=== PATIENT | male | born 1945 | race Caucasian/White ===

== ENCOUNTER → 2017-09-19 | Outpatient (CLI) | payer OTHER | END | disposition home or self-care (01) | LOC: CT 16:36 | DX: I65.23 Occlusion and stenosis of bilateral carotid arteries (principal) ==

== ENCOUNTER 2018-09-15 12:13 | Emergency (ER) | payer MEDICARE ==
[~2018-09-15] VITALS: Ht 172.7 cm; Wt 81.6 kg
--- NOTE | ~2018-09-15 | EKG ---
[place], [place] ELECTROCARDIOGRAM REPORT NAME: TELLY LAYNE UNIT #: [id number] ROOM: DOCTOR: EPIPHANY DRAFT REPORT BIRTHDATE: [birth year] [facility] Test Date: 2018-09-15 Test Time: 12:37:44 Pat Name: TELLY LAYNE Department: Room: Gender: Employee Representative: : 1945 Requested By: CAMI STANTON Order Number: [id number] Reading MD: Jermaine Nino MD Measurements Intervals [place] Rate: 82 P: 46 ND: 174 QRS: 56 QRSD: 93 T: 92 QT: 384 QTc: 449 Interpretive Statements Sinus rhythm Nonspecific repol abnormality, lateral leads Electronically Signed On 09-16-2018 11:10:45 PST by Jermaine Nino MD CM:EKGRPT:ELECTROCARDIOGRAM REPORT [id number] CAMI VANG DRAFT REPORT CAMI TSANTON M.D.
[2018-09-15 12:54] LABS: BASO % 0.3 % (0.0-1.0); EOS # 0.2 10*3/uL (0.0-0.4); EOS % 2.2 % (1.0-4.0); HEMATOCRIT 22.7 % (42.0-52.0); HEMOGLOBIN 7.4 g/dl (14.0-18.0); LYMPH # 1.1 10*3/uL (1.3-4.4); LYMPH % 11.3 % (27.0-41.0); MEAN CELL VOLUME 94.6 fl (80.0-94.0); MEAN CORPUSCULAR HGB 30.8 pg (27.0-31.0); MEAN CORPUSCULAR HGB CONC 32.6 g/dl (33.0-37.0); MEAN PLATELET VOLUME 9.6 fl (9.6-12.3); MONO # 0.6 10*3/uL (0.1-1.0); MONO % 6.7 % (3.0-9.0); NEUT # 7.3 10*3/uL (2.3-7.9); PLATELET COUNT AUTOMATED 281 10*3/uL (130-400); RED CELL DISTRI WIDTH 13.3 % (0-14.5); WHITE BLOOD COUNT 9.3 10*3/uL (4.8-10.8)
[2018-09-15 13:05] LABS: ACT PARTIAL THROMBO TIME 21.5 SECONDS (20.8-31.5)
[2018-09-15 13:10] LABS: ALBUMIN 3.3 gm/dl (3.1-4.5); ALKALINE PHOSPHATASE 89 U/L (45-117); BUN 22 mg/dl (7-24); CHLORIDE 107 mmol/L (98-107); CREATININE 1.23 mg/dL (0.70-1.30); POTASSIUM 3.6 mmol/L (3.5-5.1); SGOT/AST 20 IU/L (3-35); SGPT/ALT 17 U/L (12-78); SODIUM 141 mmol/L (136-145); TOTAL PROTEIN 7.2 gm/dL (6.4-8.2)
[2018-09-15] MEDS ORDERED: CIMETIDINE200 MG PO (13:57)
== END 2018-09-15 16:00 | disposition short-term general hospital (02) ==
LOC: ED 12:13
PROVIDERS: Emergency Medicine
DX: I63.9 Cerebral infarction, unspecified (principal); Z88.0 Allergy status to penicillin; Z79.899 Other long term (current) drug therapy

== ENCOUNTER → 2020-04-05 | Outpatient (CLI) | payer MEDICARE ==
[~2020-04-05] MED LIST: CIMETIDINE200 MG PO
== END | disposition home or self-care (01) ==
LOC: US 16:49
DX: I65.23 Occlusion and stenosis of bilateral carotid arteries (principal); I10 Essential (primary) hypertension; E78.2 Mixed hyperlipidemia

== ENCOUNTER 2020-08-16 11:08 | Inpatient (IN) | payer MEDICARE ==
[~2020-08-16] VITALS: Ht 177.8 cm; Wt 55.5 kg
[2020-08-16] VITALS (28 sets, daily range): BP systolic 93–115; BP diastolic 2–59
[2020-08-16 11:24] LABS: MEAN CELL VOLUME 86.8 fl (80.0-94.0); MEAN CORPUSCULAR HGB 24.5 pg (27.0-31.0); MEAN CORPUSCULAR HGB CONC 28.3 g/dl (33.0-37.0); NUCLEATED RED BLOOD CELL 0.1 10*3/uL (0.0-0.0); NUCLEATED RED BLOOD CELL 0.4 % (0.0-0.0); PLATELET COUNT AUTOMATED 327 10*3/uL (130-400); RED CELL DISTRI WIDTH 16.5 % (0-14.5)
--- NOTE | 2020-08-16 11:30 | NUR ---
DR. STANTON AWARE OF CRITICAL HGB AND HCT
[2020-08-16 11:32] LABS: HEMATOCRIT 19.1 % (42.0-52.0)
[2020-08-16 11:34] LABS: ACT PARTIAL THROMBO TIME 22.9 SECONDS (20.0-32.1); INTERNATIONAL NORM RATIO 1.1 (2.0-3.5)
[2020-08-16 11:43] LABS: PLATELET SUFFICIENCY NORMAL (NORMAL); TOTAL CELLS COUNTED 100 #CELLS
[2020-08-16 11:44] LABS: ALBUMIN 2.8 gm/dl (3.1-4.5); CREATININE 2.66 mg/dL (0.70-1.30); POLYCHROMASIA SLIGHT; POTASSIUM 3.6 mmol/L (3.5-5.1); TOTAL PROTEIN 7.6 gm/dL (6.4-8.2)
[2020-08-16 11:51] LABS: TROPONIN I 22.2 ng/ml (<0.045)
--- NOTE | 2020-08-16 11:52 | NUR ---
DR. STANTON AWARE OF CRITICAL TROPONIN.
--- NOTE | 2020-08-16 12:00 | NUR ---
AT BEDSIDE WITH DR. STANTON FOR HEMMOCULT EXAM. RECTAL EXAM POSITIVE FOR SCANT AMOUNT OF BLOOD.
--- NOTE | 2020-08-16 12:05 | NUR ---
WHILE ASSISTING DR. STANTON WITH RECTAL EXAM WOUND ASSESSMENT WAS COMPLETED. PATIENT HAD A APPROX 4 CM ABRASION AREA TO RIGHT BUTTOCKS. IT IS NOT OPEN, SURROUNDING SKIN WAS INTACT AND IT IS BLANCHABLE. THERE WAS A SMALL ABRASION AT THE BASE OF HIS NECK ON THE SPINOUS PROCESS THAT WAS NOT OPEN BUT MADE AWARE OF. NO SKIN BREAKDOWN ON HEELS. DR. STANTON STATES NO PHOTOS NEEDED OF THE ABRASIONS BUT I WILL MAKE NOTE OF THEM. RIGHT KNEE HAS A SMALL ABRASION ON IT ALSO.
--- NOTE | 2020-08-16 12:59 | NUR ---
GAVE SISTER UPDATE REGARDING PATIENT WITH HIS PERMISSION.
--- NOTE | 2020-08-16 13:12 | NUR ---
IV FLUIDS INFUSING PER EMAR WITHOUT DIFFICULTY. PATIENT HAS BEEN DRINKING ICED WATER BY MOUTH.
--- NOTE | 2020-08-16 13:31 | NUR ---
CONSULTED DR. ALVAREZ- VERBAL ORDER FOR 40 MG IV PROTONIX DAILY.
--- NOTE | 2020-08-16 13:33 | NUR ---
DR. STANTON AWARE OF DR. ALVAREZ'S ORDER FOR PROTONIX [address] STANTON VERBAL ORDER TO GIVE 40 MG IVP NOW.
--- NOTE | 2020-08-16 14:15 | NUR ---
1ST UNIT OF PRBC'S INITIATED AT 1405. SEE TAR
--- NOTE | 2020-08-16 14:17 | NUR ---
PATIENT NOW SAYS THAT HE DOES TAKE COUMADIN. WILL INFORM ICU NURSE.
--- NOTE | 2020-08-16 14:27 | NUR ---
VITAL SIGNS STABLE 15 MINS POST TRANSFUSION INITIATION. RATE INCREASED FROM 60 ML/HR TO 120 ML/HR. SITE APPEARS ASYMPTOMATIC. PATIENT DENIES ANY S/S OF TRANSFUSION REACTION.
--- NOTE | 2020-08-16 14:38 | NUR ---
PATIENT IS STABLE AND READY FOR TRANSPORT TO ICU BED.
--- NOTE | 2020-08-16 14:45 | NUR ---
A 74, admitted to ICCU, under the services of FLOYD Damon DO with a diagnosis of GI BLEED. Chief complaint is RECTAL BLEEDING / GENERALIZED WEAKNESS. Patient arrived via stretcher from ER. Monitor applied. Initial assessment completed. Vital signs taken and recorded. FLOYD DAMON DO notified of admission to the unit. Orders received. See assessment for past medical history, medications and allergies. Patient and/or family oriented to unit. [facility] ICCU visitation policy reviewed. Clothing/patient valuable form completed. [place]
--- NOTE | 2020-08-16 16:12 | NUR ---
SPOKE WITH PT'S SISTER,BRIA, ON THE PHONE. UPDATED HER ON PT'S CONDITION AND PLAN OF CARE. SHE STATED SHE WILL GO TO PT'S HOUSE AND CALL WITH A LIST OF HIS CURRENT MEDS. PT UPDATED THAT BRIA CALLED.
--- NOTE | 2020-08-16 16:18 | NUR ---
PT TOLERATING BLOOD TRANSFUSION WELL. PT DENIES COMPLAINTS AT THIS TIME. WILL CONTINUE TO MONITOR PT.
--- NOTE | 2020-08-16 16:25 | NUR ---
FIRST UNIT OF BLOOD COMPLETED. PT TOLERATED TRANSFUSION WELL.
--- NOTE | 2020-08-16 16:50 | NUR ---
#2 UNIT OF BLOOD STARTED. VSS. WILL CONTINUE TO MONITOR PT.
[2020-08-16 16:55] LABS: MEAN CELL VOLUME 86.5 fl (80.0-94.0); MEAN CORPUSCULAR HGB 25.3 pg (27.0-31.0); MEAN CORPUSCULAR HGB CONC 29.3 g/dl (33.0-37.0); MEAN PLATELET VOLUME 11.2 fl (9.6-12.3); NUCLEATED RED BLOOD CELL 0.1 10*3/uL (0.0-0.0); NUCLEATED RED BLOOD CELL 0.4 % (0.0-0.0); PLATELET COUNT AUTOMATED 276 10*3/uL (130-400); RED BLOOD COUNT 2.37 10*6/uL (4.50-5.90); RED CELL DISTRI WIDTH 15.9 % (0-14.5); WHITE BLOOD COUNT 13.1 10*3/uL (4.8-10.8)
--- NOTE | 2020-08-16 17:00 | NUR ---
DR VILLARREAL IN TO SEE PT. NO NEW ORDERS RECEIVED AT THIS TIME.
[2020-08-16 17:20] LABS: BASOPHILS 1 % (0-1); TOTAL CELLS COUNTED 100 #CELLS
[2020-08-16 17:21] LABS: BURR CELLS FEW; PLATELET SUFFICIENCY NORMAL (NORMAL)
--- NOTE | 2020-08-16 17:30 | NUR ---
PT DENIES COMPLAINTS. PT TOLERATING BLOOD TRANSFUSION WELL. DR GOODWIN STATED PT COULD HAVE ICE CHIPS. ICE CHIPS GIVEN TO PT.
[2020-08-16 17:38] LABS: HEMATOCRIT 20.5 % (42.0-52.0)
[2020-08-16] MEDS ORDERED: HEARTBURN RELIE10 MG PO (17:44)
[2020-08-16] MEDS ORDERED: PLAVIX75 M1 PO (17:45)
[2020-08-16] MEDS ORDERED: VITAMIN D350 MC2 PO (17:45)
[2020-08-16] MEDS ORDERED: VITAMIN B-121000 MC2 PO (17:46)
[2020-08-16] MEDS ORDERED: LEVOXYL75 MCG PO (17:47)
[2020-08-16] MEDS ORDERED: LIPITOR80 MG PO (17:53)
[2020-08-16] MEDS ORDERED: ASPIRIN ADULT L81 M1 PO (17:53)
--- NOTE | 2020-08-16 18:30 | NUR ---
SECOND UNIT OF BLOOD TRANSFUSED. PT TOLERATED TRANSFUSION WELL. CBC ORDERED BY DR GOODWIN.
[2020-08-16 20:13] LABS: BASO % 0.1 % (0.0-1.0); EOS % 0.3 % (1.0-4.0); HEMATOCRIT 24.8 % (42.0-52.0); LYMPH % 7.5 % (27.0-41.0); MEAN CELL VOLUME 85.8 fl (80.0-94.0); MEAN CORPUSCULAR HGB CONC 30.2 g/dl (33.0-37.0); MEAN PLATELET VOLUME 11.2 fl (9.6-12.3); MONO # 1.2 10*3/uL (0.1-1.0); MONO % 8.7 % (3.0-9.0); NEUT # 11.6 10*3/uL (2.3-7.9); NEUT % 82.8 % (47.0-73.0); NUCLEATED RED BLOOD CELL 0.1 10*3/uL (0.0-0.0); NUCLEATED RED BLOOD CELL 0.6 % (0.0-0.0); PLATELET COUNT AUTOMATED 276 10*3/uL (130-400); RED BLOOD COUNT 2.89 10*6/uL (4.50-5.90); RED CELL DISTRI WIDTH 15.1 % (0-14.5)
--- NOTE | 2020-08-16 20:37 | NUR ---
1930 STOOD AT BEDSIDE TO ATTEMPT TO VOID. VERY WEAK AND UNSTEADY. BACK TO BED WITH BED ALARM INTACT. HEP LOCK;S INTACT X'S 2 APOLINAR AND RH. PULSE OX 95% ON RA. VANEGAS. ALERT AND COOPERATIVE. NO C/O'S PAIN OR DISCOMFORT VOICED. NO DISTRESS NOTED. HOB ELEVATED. SIDE RAILS UP X'S 2. CALL LIGHT IN REACH.
--- NOTE | 2020-08-16 21:10 | NUR ---
PRE TRNASFUSION VITALS, 98.4 94 11 107/57
--- NOTE | 2020-08-16 21:58 | NUR ---
3RD UNIT OF PRBC'S STARTED AFTER PROPER IDENTIFICATION PER 2 RN''S. SEE TAR FOR ALL APPROPRIATE VS. PT RESTING IN BED WITH EYES CLOSED.
--- NOTE | 2020-08-16 23:10 | NUR ---
OUT OF BED FREQUENTLY TO URINATE SMALL AMOUNTS. WHEN ASKED PT WHERE [place], [place] WHAT DAY IS IT "SATURDAY". MONTH "AUGUST", WHO IS THE PRESIDENT " THAT HEAD". RE-ORIENTED.
[2020-08-17] VITALS (8 sets, daily range): BP systolic 99–116; BP diastolic 46–68
--- NOTE | 2020-08-17 01:40 | NUR ---
0125 3RD UNIT OF PRBC'S TRANSFUSED. TOLERATED WELL. SEE TAR FOR ALL APPROPRIATE VS.
--- NOTE | 2020-08-17 02:02 | NUR ---
RESTING IN BED WITH EYES CLOSED. APPEARS TO BE SLEEPING.
--- NOTE | 2020-08-17 04:10 | NUR ---
REMAINS SLEEPING WITHOUT DISTRESS,
[2020-08-17 06:10] LABS: ALBUMIN 2.5 gm/dl (3.1-4.5); CREATININE 1.93 mg/dL (0.70-1.30); POTASSIUM 3.4 mmol/L (3.5-5.1); TOTAL PROTEIN 6.7 gm/dL (6.4-8.2)
--- NOTE | 2020-08-17 06:10 | NUR ---
HAS BEEN OOB FREQUENTLY TO VOID SMALL AMOUNTS. GRUNTS LOUDLY WHEN URINATING. IV FLUIDS CONT. VSS. NO DISTRESS NOTED. CONDITION GUARDED.
--- NOTE | 2020-08-17 06:11 | NUR ---
PT REFUSED TEDS. WILL REASSESS. SCD'S NOT APPLIED DUE TO PT GETTING OOB FREQUENTLY AND SUDDENLY. RISK FOR FALL. BED ALARM INTACT.
[2020-08-17 06:12] LABS: FREE T4 0.78 ng/dl (0.76-1.46)
[2020-08-17 06:14] LABS: BASO % 0.1 % (0.0-1.0); EOS # 0.1 10*3/uL (0.0-0.4); EOS % 0.7 % (1.0-4.0); HEMATOCRIT 28.3 % (42.0-52.0); LYMPH # 1.1 10*3/uL (1.3-4.4); LYMPH % 9.1 % (27.0-41.0); MEAN CORPUSCULAR HGB 26.1 pg (27.0-31.0); MEAN CORPUSCULAR HGB CONC 31.1 g/dl (33.0-37.0); MEAN PLATELET VOLUME 11.9 fl (9.6-12.3); MONO # 1.1 10*3/uL (0.1-1.0); MONO % 9.1 % (3.0-9.0); NEUT # 9.9 10*3/uL (2.3-7.9); NEUT % 80.2 % (47.0-73.0); NUCLEATED RED BLOOD CELL 0.1 10*3/uL (0.0-0.0); NUCLEATED RED BLOOD CELL 0.5 % (0.0-0.0); PLATELET COUNT AUTOMATED 246 10*3/uL (130-400); RED BLOOD COUNT 3.37 10*6/uL (4.50-5.90); RED CELL DISTRI WIDTH 15.4 % (0-14.5); WHITE BLOOD COUNT 12.3 10*3/uL (4.8-10.8)
[2020-08-17 06:16] LABS: THYROID STIM HORMONE (HS) 7.83 uIU/ml (0.358-4.75)
--- NOTE | 2020-08-17 07:35 | NUR ---
SPOKE WITH DR ALVAREZ ABOUT PATIENT LABS/ECHO THIS AM & NPO STATUS. REQUESTED WE CHECK TO SEE IF HE IS CLEARED FOR SCOPE BY CARDIOLOGY. CALL HIM BACK WITH IF THE PATIENT IS CLEARED OR NOT. IF CLEARED WILL SCOPE. PER PT HE IS AGEEABLE AT SIT [facility] BUT CONTINUES TO ASK FOR ICE.. FREQ EXPLANATIONS MET WITH RESISTANCE. DR GOODWIN MADE AWARE
--- NOTE | 2020-08-17 08:00 | NUR ---
AM ASSESSMENT DONE AT BEDSIDE. PATIENT ALERT & ORIENTED BUT REFUSES TO FOLLOW DIRECTIONS ABOUT NPO & CALL CHRISTIAN USE. ABRAISIONS TO NECK, RT ELBOW, KNEES & BUTTOCK FROM ADMISSION AFTER CRAWLING/?FALLS AT HOME..IV SITES X2 ASYMPTOMATIC
--- NOTE | 2020-08-17 08:24 | NUR ---
PHYSICAL THERAPY Nursing screen received and chart reviewed. PT order received. Will follow to complete skilled PT evaluation. Thank you. Aura Thorpe,PT,DPT
--- NOTE | 2020-08-17 08:47 | NUR ---
PHYSICAL THERAPY Physical Therapy evaluation completed on ICCU with full evaluation to follow. Low complexity skilled PT evaluation per chart review and evaluation, [address]. Recommend physical therapy per plan of care and Home health services upon discharge. Thank you for this referral. Aura Thorpe,PT,DPT
[2020-08-17 08:56] LABS: BILIRUBIN Negative (Negative); BLOOD Negative (Negative); CLARITY Clear (Clear); COLOR Yellow (Yellow); GLUCOSE Negative (Negative); KETONE 1+ (Negative); LEUKO ESTERASE Negative (Negative); NITRITE Negative (Negative)
[2020-08-17 09:12] LABS: RBC 0-2 rbc/hpf (0-2); URIC ACID CRYSTALS TRACE
--- NOTE | 2020-08-17 09:37 | NUR ---
PT SITTING UP IN CHAIR - AWAITING BREAKFAST THEN WANTS TO GO BACK TO BED. DR GOODWIN HAS ROUNDED AND SEEN THE PATIENT
--- NOTE | 2020-08-17 09:45 | NUR ---
Manager Transmission in to talk to patient. Patient states lives at home alone with his sister checking in on him. There are 13 steps in the home. Physician: Dr. Diana Johnson Pharmacy: [facility] health services: would like [facility] on discharge Patient's level of ADLs: minimal assistance Patient has working utilities: yes DME: walker Follow-up physician's appointment after d/c: will be made by the hospitalist nurse director upon discharge Does patient want to access PORTAL?: no Discharge plan discussed with patient. He is sitting up in his bedside chair eating breakfast. He states he lives at home alone with his sister checking in on him. He is independent in his ADLs and ambulates with a walker. Discussed short term rehab and he refuses. Discussed home health care services and he is agreeable. When provided with a list of agencies he chose [facility]. When medically stable he will be discharged to home with [facility] services. He states his sister will provide transportation on discharge. SUSAN RODRIGUEZ
--- NOTE | 2020-08-17 10:42 | NUR ---
SPOKE WITH DAUGHTER AND THEN SHE SPOKE WITH THE PATIENT. CONTACT NUMBERS UPDATED
--- NOTE | 2020-08-17 10:53 | NUR ---
DR SHETH HERE TO SEE PATIENT
--- NOTE | 2020-08-17 11:40 | NUR ---
ECHO BEING DONE AT BEDSIDE- PT POSITIONED ONTO LEFT SIDE. IVF INFUSING
--- NOTE | 2020-08-17 11:56 | NUR ---
Patient not available for occupational therapy evalaution as he was getting an ECHO. OTR will attempt at a later time. Tash Leija OTr/Alana
--- NOTE | 2020-08-17 13:02 | NUR ---
PATIENT HAD HARD SMALL BALL OF STOOL. SENT FOR FOBI TESTING. COLOR BLACK/BROWN
--- NOTE | 2020-08-17 13:08 | NUR ---
MOM GIVEN FOR HARD STOOL PATIENT WAS STRAINING AND CONCERN FOR INCREASED STRESS ON THE HEART.
--- NOTE | 2020-08-17 13:16 | NUR ---
BACK TO BED WITH 1 ASSIST - SOB WITH EXERTION
--- NOTE | 2020-08-17 14:32 | NUR ---
Occupational Therapy offered this date. Patient was very tired and requested OT return tommorrow. Tash Leija OTR/Alana
--- NOTE | 2020-08-17 15:15 | NUR ---
DR VILLARREAL HERE AND ROUNDED.. NEED EGD DONE (PT IS HIGH RISK) BEFORE CAN PROCEED WITH CARDIAC TREATMENT & ANTICOAGULATION. CALL/MESSAGE LEFT FOR DR ALVAREZ
--- NOTE | 2020-08-17 15:25 | NUR ---
Nursing screen received and Occupational Therapy referral received. Thank you. Tash Leija OTR/L
--- NOTE | 2020-08-17 17:27 | NUR ---
DR ALVAREZ HERE - SPOKE WITH THE PATIENT - FOUND ULCERATIVE TYPE AREA TO LOWER TONGUE. NYSTATIN ORDERED. PATIENT REFUSED PICTURES OR MEASURING. PATIENT TO BE NPO AFTER MIDNIGHT FOR POSSIBLE EGD TOMORROW. AM LABS TO BE CALLED TO DR ALVAREZ AND CASE DISCUSSED. PATIENT INCONT OF URINE
[2020-08-18] VITALS: BP 103/61
[2020-08-18 01:29] LABS: ABG BASE EXCESS -2.9 mmol/L (-2.0-2.0); ARTERIAL BLOOD GAS PH 7.405 (7.35-7.45)
--- NOTE | 2020-08-18 01:40 | NUR ---
CALLED REGARDING PATIENT POX DECREASING ABGS OBTAINED. PATIENT VERY LABORED BREATHING. MOIST RESPIRATIONS. STATED HE WILL BE UP.
--- NOTE | 2020-08-18 02:00 | NUR ---
AT BEDSIDE. STAT PORTABLE CXR OBTAINED. IVF D/C AT THIS TIME. LASIX 40MG IV X1 GIVEN AT THIS TIME. #16 FR. NICOLE CATHETER INSERTED WITH 10CC URINE OBATINED. PATIENT BRIEF WAS WET. RESPIRATORY AT BEDSIDE AND PLACED ON BIPAP AT THIS TIME.
[2020-08-18 04:00] VITALS: BP 110/54
[2020-08-18 05:02] LABS: BASO % 0.1 % (0.0-1.0); EOS # 0.1 10*3/uL (0.0-0.4); EOS % 0.7 % (1.0-4.0); HEMATOCRIT 28.7 % (42.0-52.0); LYMPH # 1.1 10*3/uL (1.3-4.4); LYMPH % 8.2 % (27.0-41.0); MEAN CELL VOLUME 85.2 fl (80.0-94.0); MEAN CORPUSCULAR HGB 26.4 pg (27.0-31.0); MEAN PLATELET VOLUME 11.6 fl (9.6-12.3); MONO # 1.1 10*3/uL (0.1-1.0); MONO % 8.1 % (3.0-9.0); NEUT # 10.9 10*3/uL (2.3-7.9); NEUT % 82.2 % (47.0-73.0); NUCLEATED RED BLOOD CELL 0.1 10*3/uL (0.0-0.0); NUCLEATED RED BLOOD CELL 0.4 % (0.0-0.0); PLATELET COUNT AUTOMATED 228 10*3/uL (130-400); RED BLOOD COUNT 3.37 10*6/uL (4.50-5.90); WHITE BLOOD COUNT 13.3 10*3/uL (4.8-10.8)
[2020-08-18 05:21] LABS: ALBUMIN 2.5 gm/dl (3.1-4.5); CREATININE 1.64 mg/dL (0.70-1.30); TOTAL PROTEIN 6.9 gm/dL (6.4-8.2)
[2020-08-18 07:51] LABS: URINE CREATININE RANDOM 21.3 mg/dL
[2020-08-18 07:56] LABS: ABG BASE EXCESS -0.3 mmol/L (-2.0-2.0); ARTERIAL BLOOD GAS PH 7.473 (7.35-7.45)
[2020-08-18 08:00] VITALS: BP 101/64
--- NOTE | 2020-08-18 08:52 | NUR ---
CONSULT CALLED TO DR LAIENZ, MESSAGE LEFT
--- NOTE | 2020-08-18 08:59 | NUR ---
SPOKE WITH SISTER VIA PHONE ABOUT CONDITION
--- NOTE | 2020-08-18 09:04 | NUR ---
Occupational Therapy evaluation offered, nursing reports that patient is no appropriate today for OT as he had respiratory distress last night and is now on bipap. OTR will recheck tomorrow. Tash Leija OTR/dixie
--- NOTE | 2020-08-18 09:57 | NUR ---
DR LAINEZ HERE - ASSESSED AND WANTS PATIENT TRANSFERED TO [facility]. PATIENT IN AGREEMENT. RAPID & SARS COLLECTED.. DR GOODWIN SPOKE WITH DAUGHTER VIA PHONE AND WANTS [facility].
[2020-08-18 12:00] VITALS: BP 102/47
--- NOTE | 2020-08-18 12:03 | NUR ---
PHYSICAL THERAPY Patient was in ICCU-3 in with SEJAL Nieto in the room with patient. Patient is possibly being transferred to [facility] in [place] per Dr. Erickson. Patient is pending for results of COVID - 19 TEST. SEJAL PRESCOTT said yeleeanne cannot be seen today motioning through window of room. SILVA Tee present with as witness. SINDHU [employer] OFF[employer]ER
--- NOTE | 2020-08-18 13:04 | NUR ---
SPOKE WITH ONE CALL - CLINICAL UPDATES GIVEN
--- NOTE | 2020-08-18 14:36 | NUR ---
REPORT TO [facility].. PATIENT FAMILY NOTIFIED OF TRANSFER AND GIVEN PHONE NUMBER
--- NOTE | 2020-08-18 14:49 | NUR ---
PATIENT LEFT WITH KREMLIN.. CALL TO IVIS AT [facility] THAT PATIENT LEFT
--- NOTE | 2020-08-19 07:53 | NUR ---
PHYSICAL THERAPY CO-SIGN I approve of the Physical Therapy notes written above. Bertha Ibanez PT
== END 2020-08-18 14:49 | disposition short-term general hospital (02) | DRG 280 ==
LOC: ED 11:08 → EDHOLD 13:22 → ICCU 13:22
PROVIDERS: Emergency Medicine; Internal Medicine; Internal Medicine Critical Care Medicine; Internal Medicine Gastroenterology; ADMIT Internal Medicine; ATTEND Internal Medicine
PROC: 30233N1 Transfusion of Nonautologous Red Blood Cells into Peripheral Vein, Percutaneous Approach (ICD-10-PCS; principal; 2020-08-16)
PROC: 5A09357 Assistance with Respiratory Ventilation, Less than 24 Consecutive Hours, Continuous Positive Airway Pressure (ICD-10-PCS; 2020-08-18)
DX: I21.4 Non-ST elevation (NSTEMI) myocardial infarction (principal); R65.11 Systemic inflammatory response syndrome (SIRS) of non-infectious origin with acute organ dysfunction; N17.0 Acute kidney failure with tubular necrosis; J96.01 Acute respiratory failure with hypoxia; K92.2 Gastrointestinal hemorrhage, unspecified; E44.0 Moderate protein-calorie malnutrition; D62 Acute posthemorrhagic anemia; E87.0 Hyperosmolality and hypernatremia; Z68.1 Body mass index [BMI] 19.9 or less, adult; E78.5 Hyperlipidemia, unspecified; E03.9 Hypothyroidism, unspecified; E87.8 Other disorders of electrolyte and fluid balance, not elsewhere classified; E83.41 Hypermagnesemia; F17.218 Nicotine dependence, cigarettes, with other nicotine-induced disorders; E86.0 Dehydration; E87.6 Hypokalemia; R73.9 Hyperglycemia, unspecified; Z20.828 Contact with and (suspected) exposure to other viral communicable diseases; Z66 Do not resuscitate; Z51.5 Encounter for palliative care; Z86.73 Personal history of transient ischemic attack (TIA), and cerebral infarction without residual deficits; Z71.6 Tobacco abuse counseling

== ENCOUNTER 2020-08-27 10:58 | Inpatient (IN) | payer MEDICARE ==
[~2020-08-27] VITALS: Ht 177.8 cm; Wt 77.1 kg
[2020-08-27] VITALS (18 sets, daily range): BP systolic 75–113; BP diastolic 37–57
[~2020-08-27 10:58] MED LIST changes: +ASPIRIN ADULT L81 M1 PO; +HEARTBURN RELIE10 MG PO; +LEVOXYL75 MCG PO; +LIPITOR80 MG PO; +PLAVIX75 M1 PO; +VITAMIN B-121000 MC2 PO; +VITAMIN D350 MC2 PO
[2020-08-27 11:40] LABS: HEMATOCRIT 22.6 % (42.0-52.0); MEAN CELL VOLUME 89.3 fl (80.0-94.0); MEAN CORPUSCULAR HGB 26.9 pg (27.0-31.0); MEAN CORPUSCULAR HGB CONC 30.1 g/dl (33.0-37.0); MEAN PLATELET VOLUME 11.7 fl (9.6-12.3); PLATELET COUNT AUTOMATED 242 10*3/uL (130-400); RED BLOOD COUNT 2.53 10*6/uL (4.50-5.90); RED CELL DISTRI WIDTH 15.7 % (0-14.5); WHITE BLOOD COUNT 7.3 10*3/uL (4.8-10.8)
[2020-08-27 11:49] LABS: ACT PARTIAL THROMBO TIME 24.3 SECONDS (20.0-32.1); INTERNATIONAL NORM RATIO 1.1 (2.0-3.5)
[2020-08-27 11:55] LABS: ALBUMIN 2.1 gm/dl (3.1-4.5); ALKALINE PHOSPHATASE 102 U/L (45-117); BUN 40 mg/dl (7-24); CHLORIDE 106 mmol/L (98-107); CREATININE 1.35 mg/dL (0.70-1.30); POTASSIUM 4.2 mmol/L (3.5-5.1); SGOT/AST 30 IU/L (3-35); SGPT/ALT 46 U/L (12-78); SODIUM 138 mmol/L (136-145); TOTAL PROTEIN 6.2 gm/dL (6.4-8.2)
[2020-08-27 11:59] LABS: PLATELET SUFFICIENCY NORMAL (NORMAL); POLYCHROMASIA SLIGHT; ROULEAUX MODERATE; TOTAL CELLS COUNTED 100 #CELLS
--- NOTE | 2020-08-27 14:54 | NUR ---
CALLED DR HEBERT ANSWERING SERVICE AND LEFT MESSAGE FOR THE CONSULT.
--- NOTE | 2020-08-27 14:58 | NUR ---
DR STANTON ALREADY TALKED WITH DR CROOK CONCERNING THE CONSULT.
--- NOTE | 2020-08-27 15:10 | NUR ---
A 75, admitted to ICCU, under the services of AUID Hodge DO with a diagnosis of GI BLEED. Chief complaint is RECTAL BLEED. Patient arrived via ambulance from ER. Monitor applied. Initial assessment completed. Vital signs taken and recorded. AUDI HODGE DO notified of admission to the unit. Orders received. See assessment for past medical history, medications and allergies. Patient and/or family oriented to unit. [facility] ICCU visitation policy reviewed. Clothing/patient valuable form completed. MENG LONG
[2020-08-27] MEDS ORDERED: LASIX40 MG PO (15:28)
[2020-08-27] MEDS ORDERED: ZESTRIL,PRINIVIL5 MG PO (15:29)
[2020-08-27] MEDS ORDERED: LOPRESSOR25 MG PO (15:29)
[2020-08-27] MEDS ORDERED: PROTONIX TR40 M1 PO (15:31)
[2020-08-27] MEDS ORDERED: ARTIFICIAL TEAR1514 OP (15:36)
[2020-08-27 16:02] LABS: BASO % 0.1 % (0.0-1.0); EOS # 0.1 10*3/uL (0.0-0.4); EOS % 1.6 % (1.0-4.0); HEMATOCRIT 26.9 % (42.0-52.0); LYMPH # 1.3 10*3/uL (1.3-4.4); LYMPH % 19.1 % (27.0-41.0); MEAN CELL VOLUME 87.6 fl (80.0-94.0); MEAN CORPUSCULAR HGB CONC 30.9 g/dl (33.0-37.0); MEAN PLATELET VOLUME 11.6 fl (9.6-12.3); MONO # 0.5 10*3/uL (0.1-1.0); MONO % 7.5 % (3.0-9.0); NEUT # 4.8 10*3/uL (2.3-7.9); NEUT % 71.4 % (47.0-73.0); PLATELET COUNT AUTOMATED 223 10*3/uL (130-400); RED BLOOD COUNT 3.07 10*6/uL (4.50-5.90); RED CELL DISTRI WIDTH 15.4 % (0-14.5); WHITE BLOOD COUNT 6.8 10*3/uL (4.8-10.8)
--- NOTE | 2020-08-27 17:18 | NUR ---
SECOND UNIT BLOOD STARTED AT 100CC/HR
--- NOTE | 2020-08-27 17:30 | NUR ---
DR. ALVAREZ CALLED AND UPDATED ON PATIENT'S CONDITION.
--- NOTE | 2020-08-27 19:45 | NUR ---
2ND UNIT OF PRBC COMPLETED AT THIS TIME. LINE FLUSHED CLEAR WITH SALINE FROM 500ML BAG. TOLERATED WELL. AWATING HGB RESULTS AT 2100
--- NOTE | 2020-08-27 20:15 | NUR ---
PATIENT REMAINS ASYMPTOMATIC AFTER RECIEVING 2ND UNIT OF PRBC'S. VITAL SIGNS STABLE
[2020-08-27 20:55] LABS: BASO % 0.2 % (0.0-1.0); EOS # 0.2 10*3/uL (0.0-0.4); EOS % 1.9 % (1.0-4.0); HEMATOCRIT 30.8 % (42.0-52.0); LYMPH # 1.4 10*3/uL (1.3-4.4); LYMPH % 15.9 % (27.0-41.0); MEAN CELL VOLUME 86.3 fl (80.0-94.0); MEAN CORPUSCULAR HGB 27.2 pg (27.0-31.0); MEAN CORPUSCULAR HGB CONC 31.5 g/dl (33.0-37.0); MEAN PLATELET VOLUME 11.4 fl (9.6-12.3); MONO # 0.9 10*3/uL (0.1-1.0); MONO % 10.2 % (3.0-9.0); NEUT # 6.1 10*3/uL (2.3-7.9); NEUT % 71.4 % (47.0-73.0); PLATELET COUNT AUTOMATED 216 10*3/uL (130-400); RED BLOOD COUNT 3.57 10*6/uL (4.50-5.90); RED CELL DISTRI WIDTH 15.5 % (0-14.5); WHITE BLOOD COUNT 8.6 10*3/uL (4.8-10.8)
--- NOTE | 2020-08-27 21:10 | NUR ---
LAB IN TO DRAW CBC FOLLOWING BLOOD ADMINISTRATION
--- NOTE | 2020-08-27 22:30 | NUR ---
PATIENT STATES HE DOES NOT WANT TO GET BATHED AT THIS TIME, STATES HE JUST GOT WARM AND WOULD RATHER WASH UP WHEN HE WAS AWAKE. RN INFORMED PATIENT ABOUT THE POSSIBILTY OF HIM HAVING A PRODEURE TOMORROW TO ASSESS FOR BLEEDING WITH DR ALVAREZ AND THE NEED TO BE BATHED. PATIENT VERBALIZED UNDERSTANDING BUT STATES HE WANTS TO GET WASHED WHEN HE IS AWAKE STILL.
[2020-08-28] VITALS (7 sets, daily range): BP systolic 88–119; BP diastolic 43–76
[2020-08-28 00:23] LABS: BASO % 0.3 % (0.0-1.0); EOS # 0.2 10*3/uL (0.0-0.4); EOS % 3.3 % (1.0-4.0); HEMATOCRIT 28.8 % (42.0-52.0); LYMPH # 1.4 10*3/uL (1.3-4.4); LYMPH % 20.3 % (27.0-41.0); MEAN CELL VOLUME 84.7 fl (80.0-94.0); MEAN CORPUSCULAR HGB 26.8 pg (27.0-31.0); MEAN CORPUSCULAR HGB CONC 31.6 g/dl (33.0-37.0); MEAN PLATELET VOLUME 11.7 fl (9.6-12.3); MONO # 0.6 10*3/uL (0.1-1.0); MONO % 8.8 % (3.0-9.0); NEUT # 4.7 10*3/uL (2.3-7.9); NEUT % 67.2 % (47.0-73.0); PLATELET COUNT AUTOMATED 221 10*3/uL (130-400); RED CELL DISTRI WIDTH 15.5 % (0-14.5); WHITE BLOOD COUNT 7.1 10*3/uL (4.8-10.8)
--- NOTE | 2020-08-28 02:30 | NUR ---
PATIENT RESTING WITH EYES CLOSED, APPEARS TO BE SLEEPING. NO SIGNS OF SYMPTOMS OF DISTRESS SEEN. PATIENT REMAINS ON ROOM AIR AND PULSE OXIMETRY IS WITHIN NORMAL LIMITS. BP IS LOW BUT STABLE CURRENTLY. BED ALARM WAS PLACED ON FOR PATIENT SAFETY EARLIER IN THIS EVENING PATIENT WAS UNAWARE HE WASIN THE HOSPITAL AND RN WAS WORRIED ABOUT HIM BECOMING MORE CONFUSED AND ATTEMPTING TO GET OUT OF BED AND FALL. RN WILL CONTINUE TO MONITOR
[2020-08-28 06:21] LABS: BASO % 0.3 % (0.0-1.0); EOS # 0.2 10*3/uL (0.0-0.4); EOS % 3.7 % (1.0-4.0); HEMATOCRIT 28.2 % (42.0-52.0); LYMPH # 1.3 10*3/uL (1.3-4.4); LYMPH % 19.2 % (27.0-41.0); MEAN CELL VOLUME 85.2 fl (80.0-94.0); MEAN CORPUSCULAR HGB 26.6 pg (27.0-31.0); MEAN CORPUSCULAR HGB CONC 31.2 g/dl (33.0-37.0); MEAN PLATELET VOLUME 11.1 fl (9.6-12.3); MONO # 0.7 10*3/uL (0.1-1.0); MONO % 10.1 % (3.0-9.0); NEUT # 4.3 10*3/uL (2.3-7.9); NEUT % 66.4 % (47.0-73.0); PLATELET COUNT AUTOMATED 209 10*3/uL (130-400); RED BLOOD COUNT 3.31 10*6/uL (4.50-5.90); RED CELL DISTRI WIDTH 15.6 % (0-14.5); WHITE BLOOD COUNT 6.5 10*3/uL (4.8-10.8)
[2020-08-28 06:27] LABS: CHLORIDE 111 mmol/L (98-107); SODIUM 142 mmol/L (136-145)
[2020-08-28 06:33] LABS: ALKALINE PHOSPHATASE 105 U/L (45-117); CREATININE 0.96 mg/dL (0.70-1.30); SGOT/AST 30 IU/L (3-35); SGPT/ALT 40 U/L (12-78); TOTAL PROTEIN 6.1 gm/dL (6.4-8.2)
[2020-08-28 06:46] LABS: BUN 26 mg/dl (7-24)
--- NOTE | 2020-08-28 09:00 | NUR ---
DR. ALVAREZ CALLED AND UPDATED ON AM LABS. ORDERS RECEIVED TO REMAIN NPO
[2020-08-28 14:11] LABS: BASO % 0.5 % (0.0-1.0); EOS # 0.3 10*3/uL (0.0-0.4); HEMATOCRIT 27.5 % (42.0-52.0); LYMPH # 1.2 10*3/uL (1.3-4.4); LYMPH % 20.7 % (27.0-41.0); MEAN CELL VOLUME 87.6 fl (80.0-94.0); MEAN CORPUSCULAR HGB 27.7 pg (27.0-31.0); MEAN CORPUSCULAR HGB CONC 31.6 g/dl (33.0-37.0); MEAN PLATELET VOLUME 11.2 fl (9.6-12.3); MONO # 0.7 10*3/uL (0.1-1.0); MONO % 11.5 % (3.0-9.0); NEUT # 3.6 10*3/uL (2.3-7.9); NEUT % 62.1 % (47.0-73.0); PLATELET COUNT AUTOMATED 213 10*3/uL (130-400); RED BLOOD COUNT 3.14 10*6/uL (4.50-5.90); RED CELL DISTRI WIDTH 15.8 % (0-14.5); WHITE BLOOD COUNT 5.8 10*3/uL (4.8-10.8)
--- NOTE | 2020-08-28 18:20 | NUR ---
DR. BERMUDEZ HERE TO SEE PATIENT. ASKED FOR NURSE TO CALL DR. ALVAREZ REGARDING SCOPE TO BE DONE. DR. ALVAREZ CALLED WITH NO ANSWER.
[2020-08-29] VITALS (10 sets, daily range): BP systolic 91–132; BP diastolic 34–55
[2020-08-29 05:35] LABS: BUN 20 mg/dl (7-24); CHLORIDE 108 mmol/L (98-107); CREATININE 0.98 mg/dL (0.70-1.30); POTASSIUM 3.8 mmol/L (3.5-5.1); SODIUM 139 mmol/L (136-145)
[2020-08-29 06:06] LABS: BASO % 0.3 % (0.0-1.0); EOS # 0.3 10*3/uL (0.0-0.4); EOS % 5.2 % (1.0-4.0); LYMPH # 1.2 10*3/uL (1.3-4.4); MEAN CELL VOLUME 87.6 fl (80.0-94.0); MEAN CORPUSCULAR HGB 26.9 pg (27.0-31.0); MEAN CORPUSCULAR HGB CONC 30.7 g/dl (33.0-37.0); MEAN PLATELET VOLUME 11.1 fl (9.6-12.3); MONO # 0.7 10*3/uL (0.1-1.0); MONO % 11.3 % (3.0-9.0); NEUT # 3.7 10*3/uL (2.3-7.9); PLATELET COUNT AUTOMATED 234 10*3/uL (130-400); RED BLOOD COUNT 3.31 10*6/uL (4.50-5.90); RED CELL DISTRI WIDTH 15.3 % (0-14.5); WHITE BLOOD COUNT 5.9 10*3/uL (4.8-10.8)
--- NOTE | 2020-08-29 08:22 | NUR ---
SPOKE WITH DR. ALVAREZ REGARDING LAB RESULTS AND PLAN OF CARE. PATIENT SCHEDULED FOR EGD TODAY WITH DR. ALVAREZ. PATIENT IS TO REMAINED NPO.
--- NOTE | 2020-08-29 09:00 | NUR ---
CM in to see patient. He is currently short term at [facility] and would like to return there upon discharge. associate media planner following.
--- NOTE | 2020-08-29 09:03 | NUR ---
Patient comes in from [facility] ([facility]) and will require an order for Covid-19 prior to returning.
--- NOTE | 2020-08-29 12:00 | NUR ---
PATIENT TAKEN TO SURGERY FOR EGD VIA BED.
--- NOTE | 2020-08-29 12:51 | NUR ---
SPOKE WITH DOCTOR REGARDING EGD RESULTS. PATIENT WILL BE CONTINUED ON PROTONIC AND CARAFATE. H&H IN THE AM.
[2020-08-30] VITALS: BP 97/52
[2020-08-30 04:00] VITALS: BP 109/33
[2020-08-30 06:06] LABS: BUN 15 mg/dl (7-24); CHLORIDE 109 mmol/L (98-107); CREATININE 0.89 mg/dL (0.70-1.30); POTASSIUM 3.7 mmol/L (3.5-5.1); SODIUM 141 mmol/L (136-145)
[2020-08-30 06:08] LABS: BASO % 0.6 % (0.0-1.0); EOS # 0.2 10*3/uL (0.0-0.4); EOS % 4.5 % (1.0-4.0); HEMATOCRIT 29.2 % (42.0-52.0); LYMPH % 19.4 % (27.0-41.0); MEAN CELL VOLUME 87.4 fl (80.0-94.0); MEAN CORPUSCULAR HGB 27.5 pg (27.0-31.0); MEAN CORPUSCULAR HGB CONC 31.5 g/dl (33.0-37.0); MEAN PLATELET VOLUME 11.4 fl (9.6-12.3); MONO # 0.7 10*3/uL (0.1-1.0); MONO % 12.6 % (3.0-9.0); NEUT # 3.3 10*3/uL (2.3-7.9); NEUT % 62.7 % (47.0-73.0); PLATELET COUNT AUTOMATED 260 10*3/uL (130-400); RED BLOOD COUNT 3.34 10*6/uL (4.50-5.90); RED CELL DISTRI WIDTH 14.8 % (0-14.5); WHITE BLOOD COUNT 5.3 10*3/uL (4.8-10.8)
[2020-08-30 08:00] VITALS: BP 115/57
--- NOTE | 2020-08-30 08:15 | NUR ---
Occupational Therapy evaluation completed in ICCU with full eval to follow. Precautions include ICCU precautions,impaired balance, safety and moderate complexity level 84240. Recommend OT per POC and SNF to enable max ability to function. Thank you. Tash Leija OTR/L
--- NOTE | 2020-08-30 08:45 | NUR ---
CM in to see patient. He is currently short term at [facility]. His COVID is pending. When medically stable and COVID results return he can be discharged to [facility]. business continuity planner following.
[2020-08-30] MEDS ORDERED: Carafate1 GM PO (10:49)
--- NOTE | 2020-08-30 11:03 | NUR ---
PHYSICAL THERAPY Physical Therapy evaluation completed in ICCU with full evaluation to follow. Recommend physical therapy per plan of care and SNF upon discharge. Thank you for this referral. Bertha Ibanez PT
--- NOTE | 2020-08-30 11:24 | NUR ---
Patient is discharged to return to [facility] at 1PM with [facility]. NH, nursing/kitchen steward and daughter all notified.
[2020-08-30 12:00] VITALS: BP 122/56
--- NOTE | 2020-08-30 12:50 | NUR ---
Discharge instructions reviewed with patient/family. Patient receptive and verbalizes understanding. Follow-up care arranged WITH PCP IN ONE WEEK. Written instructions given to patient. IV REMOVED. PATIENT TAKEN OFF THE FLOOR VIA [facility]
--- NOTE | 2020-08-31 08:23 | NUR ---
OCCUPATIONAL THERAPY CO-SIGN I approve of the Occupational Therapy notes written above. EYAL OVALLE OTR/Alana
== END 2020-08-30 12:50 | disposition other institution (70) | DRG 377 ==
LOC: ED 10:58 → ICCU 12:46 → EDHOLD 12:46 → ICCU 13:41
PROVIDERS: Emergency Medicine; Internal Medicine; ADMIT Internal Medicine; ATTEND Internal Medicine
PROC: 30233N1 Transfusion of Nonautologous Red Blood Cells into Peripheral Vein, Percutaneous Approach (ICD-10-PCS; principal; 2020-08-27)
PROC: 0DB68ZX Excision of Stomach, Via Natural or Artificial Opening Endoscopic, Diagnostic (ICD-10-PCS; 2020-08-29)
DX: K29.71 Gastritis, unspecified, with bleeding (principal); N17.0 Acute kidney failure with tubular necrosis; D62 Acute posthemorrhagic anemia; E44.0 Moderate protein-calorie malnutrition; I38 Endocarditis, valve unspecified; I13.0 Hypertensive heart and chronic kidney disease with heart failure and stage 1 through stage 4 chronic kidney disease, or unspecified chronic kidney disease; I95.89 Other hypotension; E78.2 Mixed hyperlipidemia; E03.9 Hypothyroidism, unspecified; K21.9 Gastro-esophageal reflux disease without esophagitis; R73.9 Hyperglycemia, unspecified; I25.10 Atherosclerotic heart disease of native coronary artery without angina pectoris; I95.9 Hypotension, unspecified; N18.9 Chronic kidney disease, unspecified; I50.9 Heart failure, unspecified; I25.5 Ischemic cardiomyopathy; K29.81 Duodenitis with bleeding; Z20.828 Contact with and (suspected) exposure to other viral communicable diseases; Z68.24 Body mass index [BMI] 24.0-24.9, adult; Z88.0 Allergy status to penicillin; I25.2 Old myocardial infarction; Z95.5 Presence of coronary angioplasty implant and graft; Z86.73 Personal history of transient ischemic attack (TIA), and cerebral infarction without residual deficits

== ENCOUNTER → 2022-11-02 | Outpatient (CLI) | payer OTHER ==
[~2022-11-02] MED LIST changes: +ARTIFICIAL TEAR1514 OP; +Carafate1 GM PO; +LASIX40 MG PO; +LOPRESSOR25 MG PO; +PROTONIX TR40 M1 PO; +ZESTRIL,PRINIVIL5 MG PO
[2022-11-02 14:39] LABS: BUN 20 mg/dl (9-23); CHLORIDE 105 mmol/L (98-107); POTASSIUM 3.7 mmol/L (3.4-5.1)
== END | disposition home or self-care (01) ==
LOC: LAB 14:04
PROVIDERS: ATTEND Internal Medicine
DX: I50.23 Acute on chronic systolic (congestive) heart failure (principal)

== ENCOUNTER 2024-07-02 06:01 | Inpatient (IN) | payer OTHER ==
[~2024-07-02] VITALS: Ht 177.8 cm; Wt 59.5 kg
[2024-07-02] VITALS (9 sets, daily range): BP systolic 128–190; BP diastolic 55–77
[~2024-07-02 06:01] MED LIST changes: +CVS TUSSIN CF237 ML PO; +DOXYCYCLINE HY100 M3 PO; +FLOMAX0.4 MG PO; +JARDIANCE10 MG PO; +PREDNISONE10 MG PO
[2024-07-02] MEDS ORDERED: methylPREDNISolone sod succ 125 MG VIAL IV ONE (06:15)
[2024-07-02] MEDS ORDERED: SODIUM CHLORIDE 0.9% 1,000 ML IV ONE (06:15)
[2024-07-02] MEDS ORDERED: BUMETANIDE 1 MG/4 ML VIAL IV ONE (06:25)
[2024-07-02 06:28] LABS: BASO % 0.5 % (0.0-1.0); EOS # 0.2 10*3/uL (0.0-0.4); EOS % 2.7 % (1.0-4.0); HEMATOCRIT 37.2 % (42.0-52.0); LYMPH # 2.9 10*3/uL (1.3-4.4); LYMPH % 38.1 % (27.0-41.0); MEAN CELL VOLUME 99.5 fl (80.0-94.0); MEAN CORPUSCULAR HGB CONC 31.2 g/dl (33.0-37.0); MONO # 0.5 10*3/uL (0.1-1.0); MONO % 6.9 % (3.0-9.0); NEUT # 3.9 10*3/uL (2.3-7.9); NEUT % 51.5 % (47.0-73.0); PLATELET COUNT AUTOMATED 206 10*3/uL (130-400); RED BLOOD COUNT 3.74 10*6/uL (4.50-5.90); RED CELL DISTRI WIDTH 15.1 % (0-14.5); WHITE BLOOD COUNT 7.6 10*3/uL (4.8-10.8)
[2024-07-02 06:49] LABS: ALKALINE PHOSPHATASE 110 U/L (46-116); BUN 14 mg/dl (9-23); CHLORIDE 108 mmol/L (98-107); POTASSIUM 3.8 mmol/L (3.4-5.1); TOTAL PROTEIN 6.5 gm/dL (6.0-8.0)
[2024-07-02 06:51] LABS: SGPT/ALT < 7 U/L (5-49)
[2024-07-02] MEDS ORDERED: NITROGLYCERIN 1 IN PACKET T ONE (08:05)
[2024-07-02] MEDS ORDERED: PRILOSEC20 M1 PO (08:22)
[2024-07-02] MEDS ORDERED: PRESERVISION A1 EAC7 PO (08:23)
[2024-07-02] MEDS ORDERED: ENTRESTO 24 MG1 EACH PO (08:30)
[2024-07-02] MEDS ORDERED: DULCOLAX PO (08:32)
[2024-07-02] MEDS ORDERED: OMEGA XL (08:32)
[2024-07-02] MEDS ORDERED: ACETAMINOPHEN 325 MG TAB PO PRN (09:30)
[2024-07-02] MEDS ORDERED: MORPHINE Sulfate 2 MG/ML SYR IV PRN (09:30)
[2024-07-02] MEDS ORDERED: BISACODYL 5 MG TAB PO PRN (09:30)
[2024-07-02] MEDS ORDERED: Enoxaparin Sodium 40 MG/0.4 ML SYR SC SCH (10:00)
[2024-07-02] MEDS ORDERED: SACUBITRIL/VALSARTAN 24 MG-26 MG TABLET PO SCH (10:00)
[2024-07-02 10:39] LABS: ABG BASE EXCESS 4.4 mmol/L (-2.0-3.0); ABG O2 SATURATION 95.2 % (94.0-98.0); ARTERIAL BLOOD GAS PH 7.484 (7.350-7.450); ARTERIAL BLOOD GAS PO2 69.5 mmHg (83.0-108.0)
[2024-07-02] MEDS ORDERED: Nicotine 7 MG PATCH T SCH (10:54)
[2024-07-02] MEDS ORDERED: FUROSEMIDE 40 MG/4 ML VIAL IV SCH (18:00)
[2024-07-02] MEDS ORDERED: METOPROLOL SUCCINATE XR 25 MG TAB PO SCH (22:00)
[2024-07-03] VITALS: BP 136/61
[2024-07-03 06:17] LABS: BASO % 0.2 % (0.0-1.0); EOS % 0.1 % (1.0-4.0); HEMATOCRIT 35.9 % (42.0-52.0); LYMPH # 1.3 10*3/uL (1.3-4.4); LYMPH % 14.9 % (27.0-41.0); MEAN CELL VOLUME 96.8 fl (80.0-94.0); MEAN CORPUSCULAR HGB 30.5 pg (27.0-31.0); MEAN CORPUSCULAR HGB CONC 31.5 g/dl (33.0-37.0); MEAN PLATELET VOLUME 11.1 fl (9.6-12.3); MONO # 0.9 10*3/uL (0.1-1.0); MONO % 9.9 % (3.0-9.0); NEUT # 6.7 10*3/uL (2.3-7.9); NEUT % 74.5 % (47.0-73.0); PLATELET COUNT AUTOMATED 222 10*3/uL (130-400); RED BLOOD COUNT 3.71 10*6/uL (4.50-5.90); RED CELL DISTRI WIDTH 14.9 % (0-14.5)
[2024-07-03 06:22] LABS: ALKALINE PHOSPHATASE 91 U/L (46-116); BUN 20 mg/dl (9-23); CHLORIDE 106 mmol/L (98-107); CHOLESTEROL 183 mg/dL (<200); FREE T4 1.34 ng/dl (0.89-1.76); LDL CHOLESTEROL 126 mg/dL (9-159); POTASSIUM 3.9 mmol/L (3.4-5.1); TOTAL PROTEIN 6.3 gm/dL (6.0-8.0); TRIGLYCERIDES 85 mg/dl (<150)
[2024-07-03 06:33] LABS: SGPT/ALT < 7 U/L (5-49)
[2024-07-03 07:20] LABS: VITAMIN D, 25-HYDROXY 46.9 ng/mL (30-100)
[2024-07-03 07:52] VITALS: BP 128/70
[2024-07-03] MEDS ORDERED: SPIRONOLACTONE 25 MG TAB PO SCH (10:00)
[2024-07-03 12:09] VITALS: BP 149/51
[2024-07-03 15:59] VITALS: BP 138/53
[2024-07-03 18:41] VITALS: BP 138/53
[2024-07-03 20:00] VITALS: BP 123/49
[2024-07-03] MEDS ORDERED: ATORVASTATIN CALCIUM 80 MG TAB PO SCH (22:00)
[2024-07-04 00:06] VITALS: BP 143/49
[2024-07-04 06:24] LABS: BASO % 0.3 % (0.0-1.0); EOS # 0.2 10*3/uL (0.0-0.4); EOS % 1.8 % (1.0-4.0); HEMATOCRIT 34.4 % (42.0-52.0); LYMPH # 2.6 10*3/uL (1.3-4.4); LYMPH % 25.4 % (27.0-41.0); MEAN CELL VOLUME 96.1 fl (80.0-94.0); MEAN CORPUSCULAR HGB CONC 32.3 g/dl (33.0-37.0); MEAN PLATELET VOLUME 10.7 fl (9.6-12.3); MONO # 0.8 10*3/uL (0.1-1.0); MONO % 7.7 % (3.0-9.0); NEUT # 6.6 10*3/uL (2.3-7.9); NEUT % 64.4 % (47.0-73.0); PLATELET COUNT AUTOMATED 219 10*3/uL (130-400); RED BLOOD COUNT 3.58 10*6/uL (4.50-5.90); RED CELL DISTRI WIDTH 14.8 % (0-14.5); WHITE BLOOD COUNT 10.2 10*3/uL (4.8-10.8)
[2024-07-04 07:00] LABS: BUN 24 mg/dl (9-23); CHLORIDE 101 mmol/L (98-107); POTASSIUM 3.4 mmol/L (3.4-5.1)
[2024-07-04] MEDS ORDERED: OMEPRAZOLE 20 MG CAP PO SCH (07:30)
[2024-07-04 08:00] VITALS: BP 154/51
[2024-07-04] MEDS ORDERED: NATURE'S BLEND F1 MG PO (09:35)
[2024-07-04] MEDS ORDERED: LASIX40 MG PO (09:35)
[2024-07-04] MEDS ORDERED: ALDACTONE25 MG PO (09:35)
[2024-07-04] MEDS ORDERED: METOPROLOL SUCC25 M2 PO (09:35)
[2024-07-04] MEDS ORDERED: ASPIRIN, CHEWABLE 81 MG TAB PO SCH (10:00)
[2024-07-04] MEDS ORDERED: FOLIC ACID 1 MG TAB PO SCH (10:00)
[2024-07-04] MEDS ORDERED: Cholecalciferol 2,000 UNIT TABLET (50 MCG) PO SCH (10:00)
[2024-07-04] MEDS ORDERED: CYANOCOBALAMIN 500 MCG TAB PO SCH (10:00)
== END 2024-07-04 13:22 | disposition home or self-care (01) | DRG 291 ==
LOC: ED 06:01 → 4E 08:41 → EDHOLD 08:41 → 4E 07-03 10:50
PROVIDERS: Emergency Medicine; Internal Medicine; Registered Nurse; ADMIT Internal Medicine; ATTEND Internal Medicine
DX: I11.0 Hypertensive heart disease with heart failure (principal); I50.23 Acute on chronic systolic (congestive) heart failure; J96.01 Acute respiratory failure with hypoxia; R65.11 Systemic inflammatory response syndrome (SIRS) of non-infectious origin with acute organ dysfunction; E44.0 Moderate protein-calorie malnutrition; Z68.1 Body mass index [BMI] 19.9 or less, adult; I25.10 Atherosclerotic heart disease of native coronary artery without angina pectoris; E78.5 Hyperlipidemia, unspecified; K21.9 Gastro-esophageal reflux disease without esophagitis; I09.9 Rheumatic heart disease, unspecified; I35.0 Nonrheumatic aortic (valve) stenosis; E03.9 Hypothyroidism, unspecified; F17.210 Nicotine dependence, cigarettes, uncomplicated; Z95.5 Presence of coronary angioplasty implant and graft; Z71.6 Tobacco abuse counseling